=== PATIENT | female | born 1985 | race Two or more races ===

== ENCOUNTER → 2017-10-04 | Outpatient (CLI) | payer OTHER ==
[2017-10-05 10:14] LABS: RUBEOLA (MEASLES) IGG >300.0 AU/mL (Immune >29.9)
== END | disposition home or self-care (01) ==
LOC: EMPHLTH 14:22
PROVIDERS: ATTEND Internal Medicine
DX: Z02.1 Encounter for pre-employment examination (principal); R76.11 Nonspecific reaction to tuberculin skin test without active tuberculosis
CPT/HCPCS: 86706; 86735; 86762; 86765; 86787

== ENCOUNTER → 2021-03-28 | Outpatient (CLI) | payer OTHER | END | disposition home or self-care (01) | LOC: RADMN 07:54 | PROVIDERS: ATTEND Internal Medicine | DX: R76.11 Nonspecific reaction to tuberculin skin test without active tuberculosis (principal) | CPT/HCPCS: 71045 ==